=== PATIENT | male | born 1980 ===

== ENCOUNTER 2020-10-25 14:19 | Emergency (ER) | payer MEDICAID ==
[2020-10-25] MEDS ORDERED: Haloperidol Lactate 5 MG/ML SDV IM ONE ×2 (15:00→18:20)
--- NOTE | 2020-10-25 15:14 | EDM.PDOCBH ---
<Luis Antonio Duran Mora - Last Filed: 10/26/20 07:49> ED HPI GENERAL MEDICAL PROBLEM - General Chief Complaint: Behavioral/Psych Stated Complaint: Police referred in by EMS Time Seen by Provider: 10/25/20 14:45 Source of Information: Reports: EMS, Family, Old Records. Denies: Patient History Limitations: Reports: Other (incomplete records, patient not cooperating) - History of Present Illness INITIAL COMMENTS - FREE TEXT/NARRATIVE: 40 yo male arrives via EMS on referral by police after his of about 2 yrs pressed the [employer] button on their vehicle. She states he was acting delusionally and threatened to kill her if she tried to get him psych help. He told her he was the [employer]. She was unaware of his past hx of "schizophrenia" that Ric's mother confessed to after this incident. He apparently has a past hx of harming animals. Ric related to police a list of people he intends to kill and how he was going to do it. Has been taking Kratom per . Records from [facility] show a hx of schizoaffective disorder, severe bipolar with psychotic features, substance abuse, possible borderline personality, hx of paranoid thoughts. Meds: Latuda 80 mg bid, Ativan 1 mg daily prn-patient says these are not current. 1840h----Crisis here to assess and assist with placement, they are familiar with him from [facility]. Onset: Today Onset Date: 10/25/20 Duration: Hour(s):, Constant Location: Reports: Head Quality: Reports: Other (pain not reported) Severity: Moderate Improves with: Reports: None Worsens with: Reports: Other (time, ? ilicit drug use) Context: Reports: Other (See HPI) Associated Symptoms: Reports: Confusion (has more than one identity per patient) Treatments ANATOMIC PATHOLOGY MANAGER: Reports: Other (see below) (none) ED ROS GENERAL - Review of Systems Review Of Systems: See Below Constitutional: Reports: No Symptoms HEENT: Reports: No Symptoms Respiratory: Reports: No Symptoms Cardiovascular: Reports: No Symptoms GI/Abdominal: Reports: No Symptoms : Reports: No Symptoms, Hematuria Musculoskeletal: Reports: No Symptoms Skin: Reports: No Symptoms Neurological: Reports: No Symptoms Psychiatric: Reports: Agitation, Anxiety, Confusion, Mood Lability, Other (delusions) ED EXAM, BEHAVIORAL HEALTH - Physical Exam Exam: See Below Exam Limited By: No Limitations General Appearance: Alert, WD/WN, No Apparent Distress Eye Exam: Bilateral Eye: Normal Inspection Ears: Normal External Exam, Normal Canal, Hearing Grossly Normal Nose: Normal Inspection, No Blood Throat/Mouth: Normal Inspection, Normal Lips, Normal Voice, No Airway Compromise Head: Atraumatic, Normocephalic Neck: Normal Inspection Respiratory/Chest: No Respiratory Distress, Lungs Clear, Normal Breath Sounds, No Accessory Muscle Use Cardiovascular: Regular Rate, Rhythm, No Edema GI/Abdominal: Soft, Non-Tender Extremities: Normal Inspection Neurological: Alert, CN II-XII Intact, Normal Gait, No Motor/Sensory Deficits. No: Normal Mood/Affect, Normal Cognition Psychiatric: Alert, Restless, Agitated, Flight of Ideas, Homicidal Thoughts. No: Normal Cognition Skin Exam: Warm, Dry, Intact, Normal color, No rash Departure - Departure Time of Disposition: 08:00 Disposition: DC/Tfer to Psych Hosp/Unit [facility] Clinical Impression: Homicidal ideations, Delusions - Discharge Information *PRESCRIPTION DRUG MONITORING PROGRAM REVIEWED*: Not Applicable *COPY OF PRESCRIPTION DRUG MONITORING REPORT IN PATIENT DINO: Not Applicable Referrals: PCP,None [Primary Care Provider] - Forms: ED Department Discharge <Teo Castellanos - Last Filed: 10/26/20 17:01> COURSE, BEHAVIORAL HEALTH COMP - Course Vital Signs: Last Vital Signs Temp Pulse 101 H 10/25/20 19:04 Resp BP 160/70 H 10/25/20 19:04 Pulse Ox Orders, Labs, Meds: Laboratory Tests 10/25/20 10/25/20 10/25/20 Range/Units 14:26 14:27 18:33 WBC 13.7 H (4.5-11.0) K/uL RBC 4.45 (4.30-5.90) M/uL Hgb 13.8 (12.0-15.0) g/dL Hct 41.7 (40.0-54.0) % MCV 94 (80-98) fL MCH 31 (27-31) pg MCHC 33 (32-36) % Plt Count 350 (150-400) K/uL Sodium (140-148) mmol/L Potassium (3.6-5.2) mmol/L Chloride (100-108) mmol/L Carbon Dioxide (21-32) mmol/L Anion Gap (5.0-14.0) mmol/L BUN (7-18) mg/dL Creatinine (0.8-1.3) mg/dL Est Cr Clr Drug Dosing Estimated GFR (MDRD) (>60) Glucose (74-106) mg/dL Calcium (8.5-10.1) mg/dL TSH, Ultra Sensitive (0.358-3.740) uIU/mL Urine Color Yellow (YELLOW) Urine Appearance Clear (CLEAR) Urine pH 7.0 (5.0-8.0) Ur Specific [place] 1.025 (1.008-1.030) Urine Protein Negative (NEGATIVE) mg/dL Urine Glucose (UA) Negative (NEGATIVE) mg/dL Urine Ketones Negative (NEGATIVE) mg/dL Urine Occult Blood Negative (NEGATIVE) Urine Nitrite Negative (NEGATIVE) Urine Bilirubin Negative (NEGATIVE) Urine Urobilinogen 0.2 (0.2-1.0) EU/dL Ur Leukocyte Esterase Negative (NEGATIVE) Urine RBC 0-5 (0-5) Urine WBC 0-5 (0-5) Ur Epithelial Cells Not seen Amorphous Sediment Few Urine Bacteria Few Urine Mucus Few Urine Opiates Screen Negative (NEGATIVE) Ur Oxycodone Screen Negative (NEGATIVE) Urine Methadone Screen Negative (NEGATIVE) Ur Propoxyphene Screen Negative (NEGATIVE) Ur Barbiturates Screen Negative (NEGATIVE) Ur Tricyclics Screen Negative (NEGATIVE) Ur Phencyclidine Scrn Negative (NEGATIVE) Ur Amphetamine Screen Negative (NEGATIVE) U Methamphetamines Scrn Negative (NEGATIVE) Urine MDMA Screen Negative (NEGATIVE) U Benzodiazepines Scrn Negative (NEGATIVE) U Cocaine Metab Screen Negative (NEGATIVE) U Marijuana (THC) Screen Presumptive positive H (NEGATIVE) 10/25/20 Range/Units 18:33 WBC (4.5-11.0) K/uL RBC (4.30-5.90) M/uL Hgb (12.0-15.0) g/dL Hct (40.0-54.0) % MCV (80-98) fL MCH (27-31) pg MCHC (32-36) % Plt Count (150-400) K/uL Sodium 141 (140-148) mmol/L Potassium 4.1 (3.6-5.2) mmol/L Chloride 103 (100-108) mmol/L Carbon Dioxide 24 (21-32) mmol/L Anion Gap 14.0 (5.0-14.0) mmol/L BUN 13 (7-18) mg/dL Creatinine 0.9 (0.8-1.3) mg/dL Est Cr Clr Drug Dosing TNP Estimated GFR (MDRD) > 60 (>60) Glucose 118 H (74-106) mg/dL Calcium 8.7 (8.5-10.1) mg/dL TSH, Ultra Sensitive 0.978 (0.358-3.740) uIU/mL Urine Color (YELLOW) Urine Appearance (CLEAR) Urine pH (5.0-8.0) Ur Specific [place] (1.008-1.030) Urine Protein (NEGATIVE) mg/dL Urine Glucose (UA) (NEGATIVE) mg/dL Urine Ketones (NEGATIVE) mg/dL Urine Occult Blood (NEGATIVE) Urine Nitrite (NEGATIVE) Urine Bilirubin (NEGATIVE) Urine Urobilinogen (0.2-1.0) EU/dL Ur Leukocyte Esterase (NEGATIVE) Urine RBC (0-5) Urine WBC (0-5) Ur Epithelial Cells Amorphous Sediment Urine Bacteria Urine Mucus Urine Opiates Screen (NEGATIVE) Ur Oxycodone Screen (NEGATIVE) Urine Methadone Screen (NEGATIVE) Ur Propoxyphene Screen (NEGATIVE) Ur Barbiturates Screen (NEGATIVE) Ur Tricyclics Screen (NEGATIVE) Ur Phencyclidine Scrn (NEGATIVE) Ur Amphetamine Screen (NEGATIVE) U Methamphetamines Scrn (NEGATIVE) Urine MDMA Screen (NEGATIVE) U Benzodiazepines Scrn (NEGATIVE) U Cocaine Metab Screen (NEGATIVE) U Marijuana (THC) Screen (NEGATIVE) Medications Discontinued Medications Generic Name Dose Route Start Last Admin Trade Name Flora PRN Reason Stop Dose Admin Diazepam 10 mg 10/25/20 18:39 10/25/20 19:01 Diazepam 5 Mg Tab PO 10/25/20 18:40 10 mg ONETIME ONE Administration Haloperidol Lactate 5 mg 10/25/20 15:00 10/25/20 19:00 Haloperidol Lactate 5 Mg/Ml Sdv IM 10/25/20 15:01 Not Given ONETIME ONE Haloperidol Lactate 10 mg 10/25/20 18:20 10/25/20 22:24 Haloperidol Lactate 5 Mg/Ml Sdv IM 10/25/20 18:21 Not Given ONETIME ONE Lorazepam 1 mg 10/25/20 15:50 10/25/20 19:00 Lorazepam 1 Mg Tab PO 10/25/20 15:51 Not Given ONETIME ONE Lorazepam 1 mg 10/25/20 22:07 10/25/20 22:27 Lorazepam 2 Mg/Ml Sdv IM 10/25/20 22:08 1 mg ONETIME ONE Administration Lorazepam Confirm 10/25/20 22:10 10/25/20 22:24 Lorazepam 2 Mg/Ml Sdv Administered 10/25/20 22:11 Not Given Dose 2 mg .ROUTE .STK-MED ONE Lurasidone HCl 80 mg 10/25/20 16:00 10/25/20 19:01 Lurasidone 40 Mg Tab PO Not Given Q12H DESTINY Nicotine Polacrilex 4 mg 10/25/20 14:54 10/26/20 07:38 Nicotine Polacrilex 2 Mg Gum CHEW 4 mg Q1H PRN Administration Agitation Olanzapine 20 mg 10/25/20 22:07 10/25/20 22:25 Olanzapine 10 Mg Vial IM 10/25/20 22:08 20 mg ONETIME ONE Administration Olanzapine Confirm 10/25/20 22:10 10/25/20 22:24 Olanzapine 10 Mg Vial Administered 10/25/20 22:11 Not Given Dose 20 mg .ROUTE .STK-MED ONE Re-Assessment/Re-Exam: Care turned over from Dr. Duran, patient was not cooperative and refused to draw labs initially until police arrived. He insisted he needed 10 mg of Valium orally, 2 cups of coffee with caffeine "that he can taste", and wanted to be referred to as "Satan". When we did agree to give him the diazepam, he did calm down and started to cooperate more. He was asking for medications from "the [facility]" and continued to have some paranoid thinking and disjointed thought process. 1 hour after the Valium, he was sedated nicely and was sleeping, he still did not want to talk to crisis intervention but he is an obvious inpatient case and needs a 72-hour hold for stabilization. His labs returned reassuring, the only positive is marijuana. Crisis intervention has been acquainted with this gentleman in the past and he has had inpatient psychiatric admissions in 3 different places but has had no contact with the system for the last 3 years. Patient woke up after a 2-1/2 to 3-hour nap and now is very agitated, delusional, and had to be medicated with 20 mg of IM Zyprexa and 1 mg of IM Ativan. He was screaming he wanted OxyContin, was going to order "armegedon" on us all and poison us. Patient accepted to [facility], will be transported by EMS
[2020-10-25] MEDS ORDERED: LORazepam 1 MG Tab PO ONE (15:50)
[2020-10-25] MEDS: Nicotine Polacrilex 2 MG Gum CHEW PRN (15:54)
[2020-10-25] MEDS ORDERED: Lurasidone 40 MG Tab PO SCH (16:00)
[2020-10-25] MEDS ORDERED: Diazepam 5 MG Tab PO ONE (18:39)
[2020-10-25] MEDS ORDERED: LORazepam 2 MG/ML SDV IM ONE (22:07)
[2020-10-25] MEDS ORDERED: OLANZapine 10 MG Vial IM ONE (22:07)
[2020-10-25] MEDS ORDERED: LORazepam 2 MG/ML SDV ONE (22:10)
[2020-10-25] MEDS ORDERED: OLANZapine 10 MG Vial ONE (22:10)
[2020-10-26] MEDS: Nicotine Polacrilex 2 MG Gum CHEW PRN (07:38)
== END 2020-10-26 07:56 ==
LOC: JP.ED 14:19 → EDBD 14:19 → JP.ED 10-26 07:56
DX: F22 Delusional disorders (principal); R45.850 Homicidal ideations
CPT/HCPCS: 36415; 80048; 80305; 81001; 84443; 85027; 96372; 99285; A9270; J2060; J3490